=== PATIENT | male | born 1940 | race Hispanic/Latino ===

== ENCOUNTER 2018-02-16 10:37 | Day surgery (SDC) | payer BC, MEDICARE ==
[~2018-02-16] VITALS: Ht 165.1 cm; Wt 79.3 kg
[~2018-02-16 10:37] MED LIST: SODIUM CHLORIDE 0.9% 1000ML 1,000 ML IV ONE
[2018-02-16 11:46] VITALS: BP 140/67
[2018-02-16] MEDS ORDERED: ONDA4TAB10 PO (12:15)
[2018-02-16] MEDS ORDERED: METO-409 PO (12:15)
[2018-02-16] MEDS ORDERED: CLOP75TA32 PO (12:15)
[2018-02-16] MEDS ORDERED: OMEP40CA37 PO (12:15)
[2018-02-16] MEDS ORDERED: ERGO500014 PO (12:15)
[2018-02-16] MEDS ORDERED: FENO48TA4 PO (12:15)
[2018-02-16] MEDS ORDERED: SIMV40TA5 PO (12:15)
[2018-02-16] MEDS ORDERED: RANO500T2 PO (12:15)
[2018-02-16] MEDS ORDERED: FURO20TA4 PO (12:15)
[2018-02-16] MEDS ORDERED: FISH1CAP27 PO (12:15)
[2018-02-16] MEDS ORDERED: HYDR100T27 PO (12:15)
[2018-02-16] MEDS ORDERED: METO5TAB2 PO (12:15)
[2018-02-16 12:40] VITALS: BP 144/67
== END 2018-02-16 13:26 | disposition home or self-care (01) ==
LOC: DAH 10:37 → ENDO 10:37
PROVIDERS: ATTEND Internal Medicine Gastroenterology
DX: K29.50 Unspecified chronic gastritis without bleeding (principal); K22.8 Other specified diseases of esophagus; I10 Essential (primary) hypertension; Z86.73 Personal history of transient ischemic attack (TIA), and cerebral infarction without residual deficits; Z79.899 Other long term (current) drug therapy; K21.9 Gastro-esophageal reflux disease without esophagitis; Z95.0 Presence of cardiac pacemaker; Z95.5 Presence of coronary angioplasty implant and graft; Z68.28 Body mass index [BMI] 28.0-28.9, adult; Z98.84 Bariatric surgery status; E78.4 Other hyperlipidemia; Z95.1 Presence of aortocoronary bypass graft
CPT/HCPCS: 43239; 82948 ×2; 88305; 88312; 93005; A4606; J7030